=== PATIENT | male | born 1955 | race Caucasian/White ===

== ENCOUNTER 2022-04-25 07:30 | Observation (INO) ==
[2022-04-25] MEDS ORDERED: NS 100 ML IV 100 ML ONE (12:01)
[2022-04-25] MEDS ORDERED: NS 1,000 ML IV 1,000 ML ONE (12:01)
[2022-04-25 12:11] VITALS: BMI 32.1
[2022-04-25] MEDS ORDERED: ANCEF VIAL 1 GRAM ONE (12:15)
[2022-04-25] MEDS ORDERED: NAROPIN 0.75% EPI ONE (12:32)
[2022-04-25] MEDS ORDERED: MARCAINE 0.25% INJ ONE ×2 (14:03→14:21)
[2022-04-25] MEDS ORDERED: FENTANYL VIAL INJ 100 mcg ONE (14:16)
[2022-04-25] MEDS ORDERED: PEPCID 20 MG VIAL ONE (14:16)
[2022-04-25] MEDS ORDERED: ZOFRAN INJ 4 MG VIAL ONE (14:16)
[2022-04-25] MEDS ORDERED: ZEMURON 100 MG VIAL ONE (14:16)
[2022-04-25] MEDS ORDERED: DIPRIVAN VIAL 20 ML ONE (14:17)
[2022-04-25] MEDS ORDERED: OFIRMEV IV 1000 MG VIAL 1,000 MG/100 ML VIAL IV ONE (14:17)
[2022-04-25] MEDS ORDERED: BRIDION ONE (14:17)
[2022-04-25] MEDS ORDERED: XYLOCAINE 2 % (PLAIN) ONE (14:17)
[2022-04-25] MEDS ORDERED: VERSED ONE (14:20)
[2022-04-25] MEDS ORDERED: KETAMINE HCL ONE (14:59)
[2022-04-25] MEDS ORDERED: EPHEDRINE SULFATE INJ ONE (15:54)
[2022-04-25] MEDS ORDERED: DILAUDID INJ ONE (16:50)
[2022-04-25] MEDS ORDERED: TORADOL 30 MG VIAL ONE (16:52)
[2022-04-25] MEDS ORDERED: ULTANE GAS IN ONE (17:03)
[2022-04-25] MEDS ORDERED: ZOFRAN INJ 4 MG VIAL IVP PRN (18:27)
[2022-04-25] MEDS ORDERED: TYLENOL 325 MG TAB PO PRN (18:27)
[2022-04-25] MEDS ORDERED: DILAUDID INJ IVP PRN (18:28)
[2022-04-25] MEDS ORDERED: COLACE CAP 100 MG PO SCH (21:00)
[2022-04-26 06:05] LABS: BLOOD UREA NITROGEN 21 mg/dL (7-18); CALCIUM 8.6 mg/dL (8.5-10.1); CARBON DIOXIDE 28.9 mmol/L (21-32); CHLORIDE 102 mmol/L (98-107); COR NA(FOR HYPERGLY) 141 mmol/L (136-145); CREATININE 1.01 mg/dL (0.70-1.30); SODIUM 138 mmol/L (136-145); eGFR NON BLACK RACES > 60 (>60)
[2022-04-26] MEDS: PERCOCET TAB 5/325 MG PO PRN ×3 (08:46→16:50)
[2022-04-26] MEDS ORDERED: GLUCOTROL PO SCH (09:00)
[2022-04-26] MEDS ORDERED: ABILIFY PO SCH (09:00)
[2022-04-26] MEDS ORDERED: LOVENOX INJ 40 MG SYR SC SCH (09:00)
[2022-04-26] MEDS ORDERED: LOPRESSOR TAB 25 MG PO SCH (09:00)
[2022-04-26] MEDS ORDERED: HYDROCHLOROTHIAZIDE 12.5 MG CAP PO SCH (09:00)
[2022-04-26] MEDS ORDERED: APRESOLINE TAB 25 MG PO SCH (09:00)
[2022-04-26] MEDS ORDERED: COZAAR PO SCH (09:00)
[2022-04-26] MEDS ORDERED: ASPIRIN 81 MG CHEWTAB PO SCH (09:00)
[2022-04-26] MEDS ORDERED: NORVASC TAB 10 MG PO SCH (09:00)
[2022-04-26] MEDS ORDERED: EFFEXOR TAB 75 MG (BID DOSING) PO SCH (09:00)
[2022-04-26] MEDS ORDERED: PriLOSEC PO SCH (09:00)
[2022-04-26] MEDS ORDERED: ATIVAN TAB 0.5 MG PO PRN (09:04)
[2022-04-26 12:49] VITALS: BP 170/80
[2022-04-26 13:21] LABS: BASOPHILS % (AUTO) 0.1 % (0.2-1.0); HEMATOCRIT 37.9 % (42.0-54.0); HEMOGLOBIN 12.6 g/dL (13.5-18.0); MEAN CORPUSCULAR HEMOGLOBIN 28.7 pg (27.0-34.0); MEAN CORPUSCULAR HGB CONC 33.3 g/dL (33.0-35.0); MEAN CORPUSCULAR VOLUME 86.1 fL (80.0-100.0); MEAN PLATELET VOLUME 8.7 fL (7.4-11.0); MONOCYTES # (AUTO) 0.6 x10^3/uL (0.3-0.8); MONOCYTES % (AUTO) 3.5 % (0.0-13.0); NEUTROPHILS # (AUTO) 15.1 x10^3/uL (2.2-4.8); NEUTROPHILS % (AUTO) 90.4 % (42.0-75.0); RED BLOOD COUNT 4.39 X10^6/uL (4.7-6.0); RED CELL DISTRIBUTION WIDTH 14.7 % (11.6-16.5); WHITE BLOOD COUNT 16.8 X10^3/uL (3.6-10.0)
[2022-04-26 13:46] LABS: BAND NEUTROPHILS % 2 % (0-10); BASOPHILS % (MANUAL) 1 % (0-1); PLATELET MORPHOLOGY COMMENT NORMAL (NORMAL)
--- NOTE | 2022-04-26 14:38 | PCM.PROG ---
Progress Note Progress Note for Day of Date of Exam: 04/26/22 Subjective Subjective: Mr. Rizvi is a 66 year old male who is s/p right total ankle replacement, DOS was 04/25. Patient is doing well with minimal pain. He rates this at 3/10. Mild strike through. Denies any f/c/n/v/sob/calf pain. Past Medical Family Social History Past Med/Fam/Surg Hx: No changes since H&P Allergies: Allergies Sulfa (Sulfonamide Antibiotics) [SULFA] Allergy (Verified 04/25/22 11:55) Vital Signs and I&O's Vital Signs: Temperature 98.3 F Pulse Rate [Right Brachial] 98 Pulse Rate 78 Respiratory Rate 18 Blood Pressure [Right Arm] 170/80 Blood Pressure 140/64 O2 Sat by Pulse Oximetry 95 Intake and Output: Intake & Output 04/23/22 04/24/22 04/25/22 04/26/22 23:59 23:59 23:59 23:59 Intake Total 1999 210 / 210 Output Total 1149 / 1149 Balance 851 / 851 210 / 210 Physical Exam Oriented: Normal, Time, Person and Place Tenderness: Other (No pain with dressing change right ankle) Skin: Other (Incisions well coapted. Sutures intact. No erythema and no edema. ) Speech Pattern: Clear and Appropriate Laboratory and Diagnostics Result Diagrams: 04/26/22 05:27 04/26/22 05:27 Labs: Laboratory WBC 16.8 X10^3/uL (3.6-10.0) H 04/26/22 05:27 RBC 4.39 X10^6/uL (4.7-6.0) L 04/26/22 05:27 Hgb 12.6 g/dL (13.5-18.0) L 04/26/22 05:27 Hct 37.9 % (42.0-54.0) L 04/26/22 05:27 MCV 86.1 fL (80.0-100.0) 04/26/22 05:27 MCH 28.7 pg (27.0-34.0) 04/26/22 05: MCHC 33.3 g/dL (33.0-35.0) 04/26/22 05:27 RDW 14.7 % (11.6-16.5) 04/26/22 05:27 Plt Count 344 X10^3/uL (150.0-450.0) 04/26/22 05:27 Plt Count Comment Adequate (ADEQUATE) 04/26/22 05:27 MPV 8.7 fL (7.4-11.0) 04/26/22 05:27 Neut % (Auto) 90.4 % (42.0-75.0) H 04/26/22 05:27 Lymph % (Auto) 6.0 % (21.0-51.0) L 04/26/22 05:27 [place] % (Auto) 3.5 % (0.0-13.0) 04/26/22 05:27 Eos % (Auto) 0.0 % (0.9-2.9) L 04/26/22 05:27 Baso % (Auto) 0.1 % (0.2-1.0) L 04/26/22 05:27 Neut # (Auto) 15.1 x10^3/uL (2.2-4.8) H 04/26/22 05:27 Lymph # (Auto) 1.0 X10^3/uL (1.3-2.9) L 04/26/22 05:27 [place] # (Auto) 0.6 x10^3/uL (0.3-0.8) 04/26/22 05:27 Eos # (Auto) 0.0 x10^3/uL (0.0-0.2) 04/26/22 05:27 Baso # (Auto) 0.0 X10^3/uL (0.0-0.1) 04/26/22 05:27 Absolute Nucleated RBC 0.1 /100WBC 04/26/22 05:27 Total Counted 100 04/26/22 05:27 Neutrophils % (Manual) 82 % (39-76) H 04/26/22 05:27 Band Neutrophils % 2 % (0-10) 04/26/22 05:27 Lymphocytes % (Manual) 10 % (13-43) L 04/26/22 05:27 Monocytes % (Manual) 5 % (4-9) 04/26/22 05:27 Basophils % (Manual) 1 % (0-1) 04/26/22 05:27 Plt Morphology Comment Normal (NORMAL) 04/26/22 05:27 RBC Morphology Normal (NORMAL) 04/26/22 05:27 Sodium 138 mmol/L (136-145) 04/26/22 05:27 Corrected Sodium 141 mmol/L (136-145) 04/26/22 05:27 Potassium 4.3 mmol/L (3.5-5.1) 04/26/22 05:27 Chloride 102 mmol/L (98-107) 04/26/22 05:27 Carbon Dioxide 28.9 mmol/L (21-32) 04/26/22 05:27 BUN 21 mg/dL (7-18) H 04/26/22 05:27 Creatinine 1.01 mg/dL (0.70-1.30) 04/26/22 05:27 Est GFR (MDRD) Af Amer > 60 (>60) 04/26/22 05:27 Est GFR (MDRD) Non-Af > 60 (>60) 04/26/22 05:27 Glucose 225 mg/dL (65-99) H 04/26/22 05:27 POC Glucose (mg/dL) 218 mg/dL (65-99) H 04/26/22 10:29 Calcium 8.6 mg/dL (8.5-10.1) 04/26/22 05:27 SARS-CoV-2 (PCR) Negative (NEGATIVE) 04/25/22 11:55 Tissue Pathology To follow 04/25/22 18:10 Plan (1) Arthritis of right ankle: Status: Acute Plan: Mr. Rizvi is s/p Right total ankle replacement, DOS was 04/25. The incisions well coapted and sutures intact. He is with VSS and NAD. Leukocytosis is likely post surgical. Plan: Right LE was dressed with 4x4, abd, cast padding and posterior splint and clayton NWB on the right Elevate x2 pillows Rx's in the chart. PT consult, appreciate reps. Follow up with Dr. Valadez in one week Please do not hesitate to contact me with any questions or concerns. Nick Romo DPM Fellow [phone]
[2022-04-26] MEDS ORDERED: GLUCOPHAGE PO SCH (17:00)
[2022-04-26] MEDS ORDERED: GLUCOPHAGE ONE (17:50)
[2022-04-26] MEDS ORDERED: SNACK - Diabetic Appropriate PO SCH (20:00)
== END 2022-04-26 17:40 | disposition home or self-care (01) ==
LOC: MED/SURG → EDUNIT# 07:30
PROVIDERS: ADMIT Podiatrist; ATTEND Obstetrics & Gynecology Obstetrics
DX: R26.89 Other abnormalities of gait and mobility; Z20.822 Contact with and (suspected) exposure to COVID-19; M12.571 Traumatic arthropathy, right ankle and foot